=== PATIENT | female | born 1950 | race American Indian/Alaskan Native ===

== ENCOUNTER 2019-06-17 13:09 | Emergency (ER) | payer MEDICARE ==
[2019-06-17] MEDS ORDERED: NACL 0.9% 1000 ML 1,000 ML IV ONE (13:41)
[2019-06-17] MEDS ORDERED: REGLAN IV ONE (13:41)
[2019-06-17] MEDS ORDERED: PEPCID IV ONE (13:44)
[2019-06-17 14:10] LABS: Hematocrit 53.3 % (30.3-42.9); Hemoglobin 17.5 gm/dl (10.1-14.3); Mean Corpuscular HGB Conc 33 % (30-34); Mean Corpuscular Volume 83 fl (79-97); Platelet Count 391 K/mm3 (140-440); Red Blood Count 6.39 M/mm3 (3.65-5.03); Red Cell Distribution Width 14.7 % (13.2-15.2)
[2019-06-17] MEDS ORDERED: CATAPRES PO ONE (14:11)
--- NOTE | 2019-06-17 14:12 | Emergency Department Report ---
ED General Adult HPI - General Chief complaint: Nausea/Vomiting/Diarrhea Stated complaint: DIARRHEA Time Seen by Provider: 06/17/19 13:32 Source: patient, EMS (ems notes not available at time of chart dictation), RN notes reviewed Mode of arrival: Stretcher Limitations: No Limitations - History of Present Illness Initial comments: This is a 69-year-old female. The patient is not known to this provider previously. The patient moved here from [place] 4 months ago, and does not have a local primary care doctor. Her past medical history includes chronic her 1 years, typically inhaled, hypertension, chronic atrial fibrillation, permanent atrial fibrillation, on eliquis therapy. Patient presents to the ER today with a primary complaint of "heroin withdrawal." Her last ingestion was Monday. She stopped cold turkey. She reports headache, abdominal pain, abdominal cramping, nausea, vomiting, diarrhea, weakness, malaise and fatigue. Symptoms are intermittent but getting worse since Monday. She sought medical attention yesterday and reportedly at [facility], and reports no diagnostic workup being performed, reports no imaging being performed, and reports an evaluation by a rn case management or social professionals. She was referred to [facility], who then referred her to this hospital. Her abdominal pain is crampy, aching and throbbing, and all over. Her headache is crampy, aching, throbbing, and all over. No fevers, no neck pain, no dorsum to chest pain, no homicidality, no suicidality, no urinary symptoms. -: Gradual, days(s) Location: head, abdomen Severity scale (0 -10): 8 Consistency: other Improves with: other Worsens with: other - Related Data Home Medications Medication Instructions Recorded Confirmed Last Taken Apixaban [Eliquis] 5 mg PO BID 06/17/19 06/17/19 Unknown Ibuprofen [Motrin] 800 mg PO Q6HR PRN 06/17/19 06/17/19 Unknown Lisinopril [Zestril TAB] 40 mg PO DAILY 06/17/19 06/17/19 Unknown Metoprolol Succinate [Toprol Xl] 200 mg PO DAILY 06/17/19 06/17/19 Unknown amLODIPine [Norvasc] 10 mg PO DAILY 06/17/19 06/17/19 Unknown Previous Rx's Medication Instructions Recorded Last Taken Type Metoclopramide [Reglan] 10 mg PO QID PRN #30 tablet 06/17/19 Unknown Rx Promethazine [Phenergan SUPPOS] 50 mg MO Q6H PRN #15 supp.rect 06/17/19 Unknown Rx cloNIDine [Catapres] 0.1 mg PO BID PRN #30 tablet 06/17/19 Unknown Rx Allergies Allergy/AdvReac Type Severity Reaction Status Date / Time Penicillins Allergy Severe Shortness Verified 06/17/19 13:40 of Breath ED Review of Systems ROS: Stated complaint: DIARRHEA Other details as noted in HPI Constitutional: malaise, weakness. denies: fever Eyes: denies: eye discharge ENT: denies: epistaxis Respiratory: denies: cough Cardiovascular: denies: chest pain Gastrointestinal: abdominal pain, nausea, vomiting, diarrhea Genitourinary: denies: dysuria Musculoskeletal: arthralgia, myalgia Skin: denies: lesions Neurological: weakness Psychiatric: anxiety. denies: homicidal thoughts, suicidal thoughts ED Past Medical Hx - Past Medical History Previous Medical History?: Yes Hx Hypertension: Yes Additional medical history: Afib - Surgical History Past Surgical History?: Yes Additional Surgical History: x 2, salpingectomy - Social History Smoking Status: Never Smoker Substance Use Type: Heroin - Medications Home Medications: Home Medications Medication Instructions Recorded Confirmed Last Taken Type Apixaban [Eliquis] 5 mg PO BID 06/17/19 06/17/19 Unknown History Ibuprofen [Motrin] 800 mg PO Q6HR PRN 06/17/19 06/17/19 Unknown History Lisinopril [Zestril TAB] 40 mg PO DAILY 06/17/19 06/17/19 Unknown History Metoclopramide [Reglan] 10 mg PO QID PRN #30 tablet 06/17/19 Unknown Rx Metoprolol Succinate [Toprol Xl] 200 mg PO DAILY 06/17/19 06/17/19 Unknown History Promethazine [Phenergan SUPPOS] 50 mg MO Q6H PRN #15 supp.rect 06/17/19 Unknown Rx amLODIPine [Norvasc] 10 mg PO DAILY 06/17/19 06/17/19 Unknown History cloNIDine [Catapres] 0.1 mg PO BID PRN #30 tablet 06/17/19 Unknown Rx ED Physical Exam - General Limitations: No Limitations General appearance: alert, anxious, obese - Head Head exam: Present: atraumatic, normocephalic - Eye Eye exam: Present: normal appearance, EOMI, other (visual acuity intact to finger counting, color perception, reading at a close distance). Absent: nystagmus - ENT ENT exam: Present: normal exam, normal orophraynx, mucous membranes moist, normal external ear exam - Neck Neck exam: Present: normal inspection, full ROM. Absent: tenderness, meningismus - Respiratory Respiratory exam: Present: normal lung sounds bilaterally. Absent: respiratory distress - Cardiovascular Cardiovascular Exam: Present: tachycardia, irregular rhythm, normal heart sounds. Absent: systolic murmur, diastolic murmur, rubs, gallop - GI/Abdominal GI/Abdominal exam: Present: soft. Absent: distended, tenderness, guarding, rebound, rigid, pulsatile mass - Extremities Exam Extremities exam: Present: normal inspection, full ROM, other (2+ pulses noted in the bilateral upper, lower extremities. Compartments soft. No long bony tenderness. The pelvis is stable.). Absent: tenderness, pedal edema, joint swelling, calf tenderness - Back Exam Back exam: Present: normal inspection, full ROM. Absent: tenderness, CVA tenderness (R), CVA tenderness (L), paraspinal tenderness, vertebral tenderness - Neurological Exam Neurological exam: Present: alert, oriented X3, other (Extraocular movements intact. Tongue midline. No facial droop. Facial sensation intact to light touch in the V1, V2, V3 distribution bilaterally. 5 and 5 strength in 4 extremities.. Sensation is intact to light touch in 4 extremities.). Absent: motor sensory deficit - Psychiatric Psychiatric exam: Present: anxious. Absent: homicidal ideation, suicidal ideation - Skin Skin exam: Present: warm, dry, intact, normal color. Absent: rash ED Course Vital Signs 06/17/19 06/17/19 06/17/19 13:25 14:00 16:04 Temperature 98.4 F Pulse Rate 103 H 98 H Respiratory 20 20 16 Rate Blood Pressure 143/86 Blood Pressure 143/86 154/76 [Right] O2 Sat by Pulse 99 99 99 Oximetry 06/17/19 06/17/19 17:18 17:19 Temperature Pulse Rate 91 H 91 H Respiratory 16 Rate Blood Pressure 133/79 Blood Pressure 133/79 [Right] O2 Sat by Pulse 99 Oximetry - Reevaluation(s) Reevaluation #1: 06/17/19 14:32 Differential diagnosis, including but not limited to: Narcotic withdrawal, chronic dependence, dehydration, electrolyte derangement, intracranial hemorrhage, intra-abdominal hemorrhage Assessment and plan: 69-year-old female, on chronic anticoagulation therapy, for presumed permanent atrial fibrillation, and hypertension, also has a history of chronically consuming nasal heroin, recently stopped cold turkey, likely with clinical constellation suggesting narcotic withdrawal. She is tachycardic and laboratory studies suggest dehydration and hemoconcentration. She is not homicidal or suicidal, and does not require 1013. Has a headache and abdominal pain. Given advanced age, concurrent use of systemic anticoagulation, we will obtain CT scan of the brain, CT scan of the abdomen and pelvis. History and phy sical did not support diagnosis of subarachnoid hemorrhage, AAA, or ischemic gut. She does not meet 1013 criteria. She is requesting detox, and we will treat her symptoms, and obtain a psychiatric evaluation to assist in detox placement. Nursing team has requested to reconcile the patient's medications. Reevaluation #2: 06/17/19 16:15 Laboratory studies are reviewed and appreciated. They're consistent with dehydration. CT scan of the abdomen and pelvis and head has been ordered, interpretation is pending at this time. Reevaluation #3: 06/17/19 17:35 CT scan of the brain, CT scan of the abdomen was negative for acute disease. No active vomiting at this time. The patient at this point I does not appear to have an immediate medical contraindication to detox therapy at this time. Urinalysis reviewed and appreciated, patient does not endorse any dysuria, or frequency, or hesitancy, therefore, likely asymptomatic bacteriuria, and does not require antibiotic therapy at this point in time. ED Medical Decision Making - Lab Data Result diagrams: 06/17/19 13:51 06/17/19 Unknown Vital Signs 06/17/19 06/17/19 13:25 14:00 Temperature 98.4 F Pulse Rate 103 H Respiratory 20 20 Rate Blood Pressure 143/86 Blood Pressure 143/86 [Right] O2 Sat by Pulse 99 99 Oximetry Lab Results 06/17/19 Range/Units 13:51 WBC 8.0 (4.5-11.0) K/mm3 RBC 6.39 H (3.65-5.03) M/mm3 Hgb 17.5 H (10.1-14.3) gm/dl Hct 53.3 H (30.3-42.9) % MCV 83 (79-97) fl MCH 27 L (28-32) pg MCHC 33 (30-34) % RDW 14.7 (13.2-15.2) % Plt Count 391 (140-440) K/mm3 Vital Signs 06/17/19 06/17/19 06/17/19 13:25 14:00 16:04 Temperature 98.4 F Pulse Rate 103 H 98 H Respiratory 20 20 16 Rate Blood Pressure 143/86 Blood Pressure 143/86 154/76 [Right] O2 Sat by Pulse 99 99 99 Oximetry Lab Results 06/17/19 06/17/19 06/17/19 Range/Units 13:51 13:51 13:51 WBC 8.0 (4.5-11.0) K/mm3 RBC 6.39 H (3.65-5.03) M/mm3 Hgb 17.5 H (10.1-14.3) gm/dl Hct 53.3 H (30.3-42.9) % MCV 83 (79-97) fl MCH 27 L (28-32) pg MCHC 33 (30-34) % RDW 14.7 (13.2-15.2) % Plt Count 391 (140-440) K/mm3 PT 16.5 H (12.2-14.9) Sec. INR 1.37 H (0.87-1.13) Sodium (137-145) mmol/L Potassium (3.6-5.0) mmol/L Chloride (98-107) mmol/L Carbon Dioxide (22-30) mmol/L Anion Gap mmol/L BUN (7-17) mg/dL Creatinine (0.7-1.2) mg/dL Estimated GFR ml/min BUN/Creatinine Ratio % Glucose (65-100) mg/dL Calcium (8.4-10.2) mg/dL Total Bilirubin (0.1-1.2) mg/dL AST (5-40) units/L ALT (7-56) units/L Alkaline Phosphatase (35-129) units/L Total Protein (6.3-8.2) g/dL Albumin (3.9-5) g/dL Albumin/Globulin Ratio % Salicylates < 0.3 L (2.8-20.0) mg/dL Acetaminophen (10.0-30.0) ug/mL Plasma/Serum Alcohol (0-0.07) % 06/17/19 06/17/19 06/17/19 Range/Units 13:51 13:51 Unknown WBC (4.5-11.0) K/mm3 RBC (3.65-5.03) M/mm3 Hgb (10.1-14.3) gm/dl Hct (30.3-42.9) % MCV (79-97) fl MCH (28-32) pg MCHC (30-34) % RDW (13.2-15.2) % Plt Count (140-440) K/mm3 PT (12.2-14.9) Sec. INR (0.87-1.13) Sodium 141 (137-145) mmol/L Potassium 4.8 (3.6-5.0) mmol/L Chloride 100.0 (98-107) mmol/L Carbon Dioxide 18 L (22-30) mmol/L Anion Gap 28 mmol/L BUN 15 (7-17) mg/dL Creatinine 0.8 (0.7-1.2) mg/dL Estimated GFR > 60 ml/min BUN/Creatinine Ratio 19 % Glucose 89 (65-100) mg/dL Calcium 9.8 (8.4-10.2) mg/dL Total Bilirubin 0.80 (0.1-1.2) mg/dL AST 27 (5-40) units/L ALT 17 (7-56) units/L Alkaline Phosphatase 101 (35-129) units/L Total Protein 9.4 H (6.3-8.2) g/dL Albumin 4.8 (3.9-5) g/dL Albumin/Globulin Ratio 1.0 % Salicylates (2.8-20.0) mg/dL Acetaminophen < 5.0 L (10.0-30.0) ug/mL Plasma/Serum Alcohol < 0.01 (0-0.07) % - EKG Data 06/17/19 14:31 There is no prior EKG for comparison. This is atrial fibrillation, 98 bpm, QTC within normal limits, poor R wave progression, nonspecific ST abnormality in the lateral leads, there is motion artifact, the MO interval is indeterminate, abnormal, there is no prior for comparison, the EKG is not consistent with ST elevation myocardial infarction. - Radiology Data Radiology results: pending, report reviewed, image reviewed X-ray of the chest is negative for acute disease Critical care attestation.: If time is entered above; I have spent that time in minutes in the direct care of this critically ill patient, excluding procedure time. ED Disposition Clinical Impression: Narcotic dependence, Chronic atrial fibrillation, Medical clearance for psychiatric admission Disposition: DC/TX-65 PSY HOSP/PSY UNIT Is pt being admited?: No Does the pt Need Aspirin: No Condition: Stable Additional Instructions: Recommend patient hold lisinopril, and Norvasc for the next 3-5 days. Patient may continue metoprolol, and take clonidine as needed for in terms of narcotic withdrawal. Patient may also take Reglan, Phenergan suppositories as needed for nausea, vomiting. Recommend patient follow up with a primary care doctor within the next 7-10 days. Advance diet as tolerated, drink plenty of fluids, and solid food as needed. Return to the emergency room right away with new, worsening or different symptoms, or symptoms not present on the initial emergency room evaluation. Referrals: [facility] [Provider Group] - 3-5 Days [facility] [Provider Group] - 3-5 Days
--- NOTE | 2019-06-17 14:28 | XRay Report ---
CHEST 1 VIEW 06/17/2019 2:02 PM INDICATION / CLINICAL INFORMATION: WEAK N/V. COMPARISON: None available. FINDINGS: SUPPORT DEVICES: None. HEART / MEDIASTINUM: No significant abnormality. LUNGS / PLEURA: No significant pulmonary or pleural abnormality. No pneumothorax. ADDITIONAL FINDINGS: No significant additional findings. IMPRESSION: 1. No acute findings. Signer Name: Denise Gloria MD Signed: 06/17/2019 2:24 PM Workstation Name: [id number]
[2019-06-17 14:32] LABS: INR 1.37 (0.87-1.13)
[2019-06-17 15:25] LABS: Albumin 4.8 g/dL (3.9-5); BUN/Creatinine Ratio 19; Blood Urea Nitrogen 15 mg/dL (7-17); Calcium 9.8 mg/dL (8.4-10.2); Hemolysis Index 138
[2019-06-17] MEDS ORDERED: ZESTRIL PO SCH (16:00)
[2019-06-17 16:01] LABS: Alanine Aminotransferase 17 units/L (7-56)
[2019-06-17 16:17] LABS: Bacteria,Urine 1+ /HPF (Negative); Bilirubin,Urine NEG (Negative); Blood,Urine NEG (Negative); Color,Urine Yellow (Yellow); Hyaline Casts,Urine 5 /LPF; Mucus,Urine 2+ /HPF; RBC,Urine < 1.0 /HPF (0.0-6.0); Urobilinogen,Urine < 2.0 mg/dL (<2.0)
--- NOTE | 2019-06-17 16:34 | Cat Scan Report ---
CT ABDOMEN AND PELVIS WITHOUT CONTRAST HISTORY: Abdominal pain with nausea and vomiting COMPARISON: None. TECHNIQUE: Axial CT images were obtained through the abdomen and pelvis without IV contrast. Sagittal and coronal reformatted images. All CT scans at this location are performed using CT dose reduction for ALARA by means of automated exposure control. FINDINGS: CT ABDOMEN: Lung Bases: Clear. Liver: No significant abnormality. Biliary: No significant abnormality. Spleen: No significant abnormality. Unenlarged. Pancreas: No significant abnormality. Adrenals: No significant abnormality. Kidneys: No significant abnormality. 2 cm cyst in the mid right kidney is noted. Lymphatics: No lymphadenopathy. Vasculature: No significant abnormality. Bowel/Peritoneum: There is a focal area of mild circumferential bowel wall thickening in the cecum. T his is best demonstrated on axial image 44. This may be secondary to peristalsis.. No free air. No fr ee fluid. Normal appendix CT PELVIS: : No significant abnormality. Osseous Structures: No significant abnormality. Additional Findings: None IMPRESSION: Questionable area of circumferential thickening in the proximal colon/cecum. This could represent per istalsis. Please correlate with the clinical presentation of the patient. Otherwise, unremarkable malik massey Signer Name: Williams Rosas Jr, MD Signed: 06/17/2019 4:29 PM Workstation Name: [id number]
--- NOTE | 2019-06-17 16:40 | Cat Scan Report ---
CT HEAD WITHOUT CONTRAST INDICATION / CLINICAL INFORMATION: MAIN: [facility] N/V TECH NOTES: PT C/O ABD PAIN WITH N/V/D. TECHNIQUE: All CT scans at this location are performed using CT dose reduction for ALARA by means of automated e xposure control. COMPARISON: None available. FINDINGS: HEMORRHAGE: No evidence of intracranial hemorrhage or extra-axial fluid collection. EXTRA-AXIAL SPACES: Cortical sulci, sylvian fissures and basilar cisterns have an unremarkable appear ance. VENTRICULAR SYSTEM: The ventricular system is of normal size and configuration. CEREBRAL PARENCHYMA: No areas of abnormal brain parenchymal attenuation are identified. There is no i ndication of recent infarction. MIDLINE SHIFT OR HERNIATION: There is no mass effect. CEREBELLUM / BRAINSTEM: Brainstem and cerebellum have an unremarkable appearance. INTRACRANIAL VESSELS:No abnormalities are identified on this noncontrast head CT. ORBITS: visualized portions of the orbits have an unremarkable appearance. SOFT TISSUES of HEAD: No significant abnormality. CALVARIUM: Evaluation of bone windows reveals no abnormalities. PARANASAL SINUSES / MASTOID AIR CELLS: Paranasal sinuses are free from inflammatory mucosal disease. Mastoid air cells are normally pneumatized. IMPRESSION: 1. No acute intracranial abnormality. There is little in the way of age-related involutional change i n this 69-year-old individual. Signer Name: Meek Crocker MD Signed: 06/17/2019 4:35 PM Workstation Name: [id number]
[2019-06-17 17:19] VITALS: BP 133/79
[2019-06-17 20:29] LABS: Amphetamine Screen,Urine PRESUMPTIVE NEGATIVE; Benzodiazepines Screen,Urine PRESUMPTIVE NEGATIVE; Cocaine Screen,Urine PRESUMPTIVE NEGATIVE; Methadone Screen,Urine PRESUMPTIVE NEGATIVE; Opiate Screen,Urine PRESUMPTIVE NEGATIVE
[2019-06-17 20:51] LABS: Cannabinoid Screen,Urine PRESUMPTIVE POSITIVE
[2019-06-17] MEDS ORDERED: TYLENOL ONE (20:56)
[2019-06-17] MEDS ORDERED: TYLENOL PO ONE (21:11)
[2019-06-17] MEDS ORDERED: ZOFRAN ONE (21:37)
[2019-06-18] MEDS ORDERED: NORVASC PO SCH (10:00)
== END 2019-06-18 01:30 ==
LOC: ED 13:09
DX: I48.2 Chronic atrial fibrillation (principal); I10 Essential (primary) hypertension; F11.20 Opioid dependence, uncomplicated; R11.2 Nausea with vomiting, unspecified; R19.7 Diarrhea, unspecified; R10.9 Unspecified abdominal pain; Z88.0 Allergy status to penicillin; Z79.899 Other long term (current) drug therapy; Z90.721 Acquired absence of ovaries, unilateral
CPT/HCPCS: 36415; 70450; 71045; 74176; 80053; 80307; 81001; 82550; 83735; 85027; 85610; 93005; 93010; 96361; 96374; 96375; 99285; J2405; J2765; J7030; 80320; G0480